=== PATIENT | female | born 1965 | race Caucasian/White ===

== ENCOUNTER 2020-05-06 08:46 | Outpatient (CLI) | payer BC, SELFPAY ==
--- NOTE | 2020-05-06 09:00 | MM_ITS ---
WS: [id number] BILATERAL DIGITAL SCREENING MAMMOGRAM WITH CAD CLINICAL INFORMATION: screening HISTORY: Screening mammogram. No current complaints. COMPARISON: TECHNIQUE: Bilateral CC and MLO. FINDINGS: The breast are composed of extremely dense tissue, which can limit the detection of small underlying mass lesions. No suspicious focal mass, asymmetry, calcifications, or architectural distortion. No ev idence of malignancy. A few punctate calcifications. MM/[place] [id number] IMPRESSION: BI-RADS: 2-Benign FOLLOW UP: 1 Year Follow-up Recommend return to annual screening mammography.
== END 2020-05-06 08:47 | disposition home or self-care (01) ==
LOC: RADSHAW 08:49
PROVIDERS: PCP Family Medicine; Visit Provider Obstetrics & Gynecology
DX: Z12.31 Encounter for screening mammogram for malignant neoplasm of breast (principal)
CPT/HCPCS: 77067

== ENCOUNTER 2021-02-21 09:06 | Outpatient (CLI) | payer BC, SELFPAY ==
--- NOTE | 2021-02-21 09:26 | MR_ITS ---
WS: [id number] MRI HEAD WITH CONTRAST WITH ATTENTION TO THE INTERNAL AUDITORY CANALS TECHNIQUE: Sagittal T1, T2 axial, T2 axial flair, axial susceptibility weighted imaging, axial diffus ion weighted images, and coronal T2 images were obtained. Pre and post T1 axial and post T1 coronal i mages. ADC and FSPGR images. Post gadolinium images with attention to the internal auditory canals. A xial fiesta imaging. CLINICAL INFORMATION: DIPLOPIA, MIGRAINE COMPARISON: None. FINDINGS: No evidence of restricted diffusion to suggest acute ischemia. Ventricular system and basal cisterns are patent. Minimal small vessel changes. Mild parenchymal volume loss. Normal posterior fossa. Lissette l vascular flow voids at the skull base. No extra-axial fluid collections. No evidence of mass or mas s effect. Paranasal sinuses and mastoid air cells are well aerated. Normal visualized posterior nasop harynx. No hemosiderin on the susceptibility weighted images. Proximal 7th and 8th cranial nerves are normal in appearance. Normal trigeminal nerve root entry zones. No evidence of enhancing IAC or CP angle mas s. Normal optic chiasm and pituitary infundibulum. Normal cavernous sinuses and Meckel's cave. Normal sella and pituitary tissue. Normal dural venous sinuses. No abnormal intracranial enhancement. MR/MR iac's wo/w con* [id number] IMPRESSION: 1. No evidence of restricted diffusion to suggest acute ischemia. 2. Minimal small vessel changes with mild parenchymal volume loss. 3. Paranasal sinuses and mastoid air cells are well aerated. 4. Proximal 7th and 8th cranial nerves are normal in appearance. No evidence o f enhancing IAC or CP angle mass. 5. Normal trigeminal nerve root entry zones. 6. Normal optic chiasm and pituitary infundibulum. Normal sella. 7. No other significant findings.
[2021-02-21] MEDS: gadobenate dimeglumine 20 mL vial IV (10:20)
== END 2021-02-21 09:07 | disposition home or self-care (01) ==
PROVIDERS: PCP Family Medicine; Visit Provider Psychiatry & Neurology Neurology
DX: H53.2 Diplopia (principal); G43.909 Migraine, unspecified, not intractable, without status migrainosus
CPT/HCPCS: 70553; A9577

== ENCOUNTER → 2022-05-04 15:20 | Outpatient (BNVA) | payer BC, SELFPAY | PROVIDERS: PCP Family Medicine; Visit Provider Obstetrics & Gynecology | DX: Z01.419 Encounter for gynecological examination (general) (routine) without abnormal findings (principal); Z78.0 Asymptomatic menopausal state; Z12.39 Encounter for other screening for malignant neoplasm of breast | CPT/HCPCS: 87624 ==

== ENCOUNTER 2022-07-29 09:02 | Outpatient (CLI) | payer BC, SELFPAY ==
--- NOTE | 2022-07-29 09:20 | MM_ITS ---
WS: [id number] Bilateral screening 3D tomosynthesis digital mammogram, 07/29/2022 Clinical Data: Z12.39 - Encounter for other screening for malignant neop... Comparison: 05/06/2020, 08/13/2017, 08/09/2017. Findings: The breast parenchymal pattern shows extreme density. No spiculated masses or clustered calcification s are seen. There are no secondary signs of carcinoma. There are lymph nodes in the left axilla. MM/[place] [id number] Impression: 1. Negative bilateral mammogram unchanged. 2. Recommend annual screening mammograms. BIRADS: 1-Negative FOLLOW UP: 1 Year Follow-up The CAD electric organ checker was used.
== END 2022-07-29 09:03 | disposition home or self-care (01) ==
LOC: RAD 09:06
PROVIDERS: PCP Family Medicine; Visit Provider Family Medicine
DX: Z12.31 Encounter for screening mammogram for malignant neoplasm of breast (principal)
CPT/HCPCS: 77063; 77067

== ENCOUNTER → 2022-10-29 09:20 | Outpatient (BNVA) | payer BC, SELFPAY | PROVIDERS: PCP Family Medicine; Visit Provider Family Medicine | DX: Z00.00 Encounter for general adult medical examination without abnormal findings (principal); I10 Essential (primary) hypertension | CPT/HCPCS: 80053; 80061 ==

== ENCOUNTER 2023-03-18 11:45 | Emergency (ER) | payer BC, SELFPAY ==
[2023-03-18 11:54] VITALS: BP 126/85; PULSE 71; RESP 20; O2SAT 100
--- NOTE | 2023-03-18 12:02 | ECG_ITS ---
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 Measurements Intervals [place] Rate: 68 P: -15 HI: 157 QRS: 62 QRSD: 110 T: -1 QT: 414 QTc: 441 Interpretive Statements SINUS RHYTHM LOW QRS VOLTAGE IN PRECORDIAL LEADS [QRS DEFLECTION < 1.0 mV IN CHEST LEADS] INCOMPLETE RIGHT BUNDLE BRANCH BLOCK [90+ ms QRS DURATION, TERMINAL R IN V1/V2, 40+ ms S IN I/aVL/V4/V5/V6] ABNORMAL QRS-T ANGLE [QRS-T AXIS DIFFERENCE > 60] No previous ECG available for comparison Electronically Signed On 03-18-2023 15:15:36 CDT by Jerome Oden M.D. [email or web address] Pharmaceuticalsmymichigan [facility] center.[employer]/store/NU/[id number] f
--- NOTE | 2023-03-18 12:02 | XRR_ITS ---
PROCEDURE INFORMATION: Exam: XR Chest Exam date and time: 03/18/2023 12:20 PM Age: 58 years old Clinical indication: Pain; Angina pectoris; Additional info: Chest pain TECHNIQUE: Imaging protocol: Radiologic exam of the chest. Views: 1 view. COMPARISON: No relevant prior studies available. FINDINGS: Lungs: Unremarkable. No consolidation. Pleural spaces: Unremarkable. No pleural effusion. No pneumothorax. Heart/Mediastinum: Unremarkable. No cardiomegaly. Bones/joints: Unremarkable for age. XR/XR chest 1V portable [id number] IMPRESSION: Negative chest exam.
[2023-03-18 12:24] LABS: Basophils % 0.7 %; Eosinophils % 0.7 %; Hematocrit 41.3 % (36-47); Lymphocytes # 1.5 10^3/uL (0.8-4.8); Lymphocytes % 32.5 %; Mean Corpuscular HGB Conc 35.1 g/dL (30-55); Mean Corpuscular Hemoglobin 32.4 pg (27-33); Mean Corpuscular Volume 92.2 fl (85-98); Monocytes # 0.4 10^3/uL (0.2-0.9); Monocytes % 7.7 %; Neutrophils # 2.66 10^3/uL (1.8-7.7); Neutrophils % 58.2 %; Nucleated Red Blood Cells % 0 %; Platelet Count 249 10^3/cmm (157-399); Red Blood Count 4.48 10^6/uL (3.85-5.65); Red Cell Distribution Width 11.7 % (12.1-15.1); White Blood Count 4.56 10^3/uL (3.29-11.43)
[2023-03-18 12:36] LABS: Troponin(5th) Baseline 6 ng/L (0-10)
[2023-03-18 12:39] LABS: Alanine Aminotransferase 11 U/L (0-33); Albumin Level 4.7 g/dL (3.5-5.2); Alkaline Phosphatase 138 U/L (35-105); Anion Gap 16.5 (5-19); Aspartate Amino Transferase 18 U/L (0-32); Blood Urea Nitrogen 13 mg/dL (8-23); Calcium 9.6 mg/dL (8.5-10.5); Carbon Dioxide 25 mmol/L (22-29); Chloride 101 mmol/L (98-107); Globulin 2.3 g/dL (1.3-4.6); Glomerular Filtration Rate 73.2 mL/min (90-130); Glucose 98 mg/dL (65-115); Osmolality Calculated 286 mOsm/kg (285-295); Potassium 4.5 mmol/L (3.5-5.1); Sodium 138 mmol/L (136-145); Total Bilirubin 0.9 mg/dL (0.15-1.2)
--- NOTE | 2023-03-18 14:02 | ECG_ITS ---
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 Measurements Intervals [place] Rate: 57 P: 66 [place]: 156 QRS: -12 QRSD: 105 T: 47 QT: 443 QTc: 431 Interpretive Statements SINUS BRADYCARDIA LOW QRS VOLTAGE IN PRECORDIAL LEADS [QRS DEFLECTION < 1.0 mV IN CHEST LEADS] SEPTAL MYOCARDIAL INFARCTION , PROBABLY OLD [40+ ms Q WAVE IN V1/V2] No previous ECG available for comparison Electronically Signed On 03-18-2023 15:15:48 CDT by Jerome Oden M.D. [email or web address].[employer]/store/OM/[id number]/[id number]
--- NOTE | 2023-03-18 14:20 | ED_ITS ---
HPI - Chest Pain General: Chief Complaint: Chest Pain Stated Complaint: chest pain Time Seen by Provider: 03/18/23 14:11 Source: patient Mode of arrival: ambulatory History of Present Illness: 58-year-old female who presents emergency room with complaint of episode of chest pain this morning. She was outside working in her garden and about 45 minutes ago had an episode of chest pain. Has not previously had chest pain is completely resolved by now. When she began to get it she describes as like a pressure sensation with no radiation into her neck or arms. She was mildly short of breath she went inside and it persisted so she came to the emergency room at times. Here it is resolved. She does have a history of hypertension no history of hyperlipidemia no family history of early heart disease she is non- smoker nondiabetic MD complaint: chest pain Onset (ago): hour(s) Timing of current episode: episodic Prior episodes: No Onset: during exertion Pain location: left chest Pain radiation: none Severity: moderate Quality: tightness and heaviness Relieving factors: nothing Exacerbating factors: nothing Associated symptoms: Deny abdominal pain, diaphoresis, dyspnea, fever(s), leg e mary, nausea, palpitations, sense of impending doom, syncope or vomiting Treatment prior to arrival: none Review of Systems Const: Denies: fever(s), chills or diaphoresis ENMT: Denies: throat pain, ear or mastoid pain, nasal discharge or nasal congestion Card: Reports: chest pain; Denies: palpitations, irregular heart rhythm, edema or syncope Resp: Denies: dyspnea, productive cough or non-productive cough GI: Denies: abdominal pain, nausea or vomiting : Denies: flank pain, difficulty voiding, dysuria, urinary frequency or urinary urgency Musc: Denies: neck pain or back pain Skin/Breast: Denies: rash or pruritus PFSH ED PFSH: Medical History Chronic hypertension Diagnosed in her early 40s controlled on lisinopril. Managed by PMD. No pertinent past medical history Denies diabetes, seizures, DVT/PE, asthma PCP: Dr. Crystal Vestibular migraine Taking verapamil for this and being managed by neurologist Dr. Kilpatrick in [place]. Surgical History S/P discectomy L5/L6---1997 S/P right knee arthroscopy 2009 Status post surgery Pyloric stenosis correction as an , right upper quadrant horizontal incision Status post surgery Growth removal from right thumb Family History Mother Heart disease Grandfather Heart disease paternal Lung cancer maternal Hypertension paternal Family/Other Breast cancer cousin, diagnosed in early 50s Father Stroke Hypertension Denies family history of Colon cancer Ovarian cancer Hyperlipidemia Uterine cancer Thyroid condition Social History Smoking and tobacco status: never smoked Physical Exam Const: GENERAL APPEARANCE: cooperative and comfortable ORIENTATION/CONSCIOUSNESS: Yes awake, Yes oriented to person, Yes oriented to place and Yes oriented to time HENMT: COMMON NORMALS: normocephalic, atraumatic and hearing grossly normal bilaterally HEAD & SCALP: normocephalic and atraumatic Resp: COMMON NORMALS: normal respiratory effort, No retractions, No use of accessory muscles and clear to auscultation bilaterally AUSCULTATION: clear to auscultation bilaterally Cardio: COMMON NORMALS: regular rate, regular rhythm and No murmurs present (Cardio) RATE: regular rate RHYTHM: regular rhythm GI: COMMON NORMALS: Soft to palpation and No hepatosplenomegaly present AUSCULTATION: Yes normoactive bowel sounds PALPATION: Yes Soft to palpation, No Tenderness to palpation present (GI), No Guarding due to palpation present (GI) and Yes No hepatosplenomegaly present Extremity: COMMON NORMALS: normal to inspection, capillary refill normal, no clubbing, cyanosis or edema, no calf tenderness and no pedal edema Neuro: SENSORIUM/ORIENTATION: Yes oriented to person, Yes oriented to place and Yes oriented to time Skin: COMMON NORMALS: no rashes or lesions noted GENERAL SKIN EXAM: no rashes or lesions noted Course Vital Signs: Vital signs: Vital Signs Pulse Rate 62 03/18/23 15:51 Respiratory Rate 15 03/18/23 15:51 Blood Pressure 106/54 03/18/23 15:51 Pulse Oximetry 97 03/18/23 15:51 Oxygen Delivery Me thod Room Air 03/18/23 15:51 MDM - Chest Pain Medical Decision Making Atypical chest pain resolved EKG does not show any acute ST changes cardiac enzymes negative. We will discharge patient home baby aspirin daily and set up outpatient Lexiscan sestamibi stress test return if has recurrent symptoms. Medical Records I reviewed the patient's medical records. Lab Data I reviewed the patient's lab results. 03/18/23 12:12 03/18/23 12:12 Radiology Impressions Chest X-Ray 03/18/23 12:02 IMPRESSION: Negative chest exam. Laboratory Results WBC 4.56 10^3/uL (3.29-11.43) 03/18/23 12:12 RBC 4.48 10^6/uL (3.85-5.65) 03/18/23 12:12 Hgb 14.50 g/dL (11.27-16.99) 03/18/23 12:12 Hct 41.3 % (36-47) 03/18/23 12:12 MCV 92.2 fl (85-98) 03/18/23 12:12 MCH 32.4 pg (27-33) 03/18/23 12:12 MCHC 35.1 g/dL (30-55) 03/18/23 12:12 RDW 11.7 % (12.1-15.1) L 03/18/23 12:12 Plt Count 249 10^3/cmm (157-399) 03/18/23 12:12 MPV 10.0 fL (7.4-10.4) 03/18/23 12:12 Neut % (Auto) 58.2 % 03/18/23 12:12 Lymph % (Auto) 32.5 % 03/18/23 12:12 Coleman % (Auto) 7.7 % 03/18/23 12:12 Eos % (Auto) 0.7 % 03/18/23 12:12 Baso % (Auto) 0.7 % 03/18/23 12:12 Neut # (Auto) 2.66 10^3/uL (1.8-7.7) 03/18/23 12:12 Lymph # (Auto) 1.5 10^3/uL (0.8-4.8) 03/18/23 12:12 Coleman # (Auto) 0.4 10^3/uL (0.2-0.9) 03/18/23 12:12 Eos # (Auto) 0.0 10^3/uL (0.0-0.8) 03/18/23 12:12 Baso # (Auto) 0.0 10^3/uL (0.0-0.1) 03/18/23 12:12 Nucleated RBC % (auto) 0 % 03/18/23 12:12 Nucleated RBCs # 0.0 /100WBC 03/18/23 12:12 Sodium 138 mmol/L (136-145) 03/18/23 12:12 Potassium 4.5 mmol/L (3.5-5.1) 03/18/23 12:12 Chloride 101 mmol/L (98-107) 03/18/23 12:12 Carbon Dioxide 25 mmol/L (22-29) 03/18/23 12:12 Anion Gap 16.5 (5-19) 03/18/23 12:12 BUN 13 mg/dL (8-23) 03/18/23 12:12 Creatinine 0.8 mg/dL (0.5-0.9) 03/18/23 12:12 GFR Calculation 73.2 mL/min (90-130) L 03/18/23 12:12 Glucose 98 mg/dL (65-115) 03/18/23 12:12 Calculated Osmolality 286 mOsm/kg (285-295) 03/18/23 12:12 Calcium 9.6 mg/dL (8.5-10.5) 03/18/23 12:12 Total Bilirubin 0.9 mg/dL (0.15-1.2) 03/18/23 12:12 AST 18 U/L (0-32) 03/18/23 12:12 ALT 11 U/L (0-33) 03/18/23 12:12 Alkaline Phosphatase 138 U/L (35-105) H 03/18/23 12:12 Troponin T Baseline 6 ng/L (0-10) 03/18/23 12:12 Troponin T 120 Minute 6.00 ng/L (0-10) 03/18/23 14:27 Delta Troponin T 0 ABS# (0-10) 03/18/23 14:27 Total Protein 7.0 g/dL (6.6-8.7) 03/18/23 12:12 Albumin 4.7 g/dL (3.5-5.2) 03/18/23 12:12 Globulin 2.3 g/dL (1.3-4.6) 03/18/23 12:12 Discharge Plan Discharge Patient Disposition: Home Clinical Impression: Atypical chest pain Condition: Stable Prescriptions: New aspirin 81 mg tablet,delayed release (DR/EC) 81 mg PO DAILY Qty: 30 0RF No Action Qulipta 60 mg tablet 60 mg PO DAILY Premarin 0.625 mg/gram cream See Rx Instructions VAGINAL .COMPLEX Qty: 30 2RF Rx Instructions: 1/2 gram q 5 days vaginally clobetasol 0.05 % cream 1 applic topical BID 14 Days Qty: 45 0RF Rx Instructions: use twice daily for two weeks only and then twice a week after that. lisinopril 10 mg tablet 10 mg PO DAILY cholecalciferol (vitamin D3) 50 mcg (2,000 unit) tablet 50 mcg PO DAILY osteobiflex 1 tab PO DAILY multivitamin with iron Tablet 1 tab PO DAILY verapamil 240 mg tablet extended release 240 mg PO DAILY Discharge Orders: Discharge ED (Routine); Ordered 03/18/23 Ordered By: Jamari Mello Referrals: Anuj Crystal MD [Primary Care Provider] - Discharge Diet: Usual diet Discharge Activity: Increase activity as tolerated Patient Instructions: Opioid Safety, Pain Management Activity Restrictions/Additional Instructions: You are seen today for atypical chest pain. Cardiac enzymes and EKG were unremarkable returned case inspector will make arrangements for you to have a stress test. Recommend that you take baby aspirin daily if you have worsening or recurrent symptoms recheck in the emergency room. Coding Level of Care Code ED Hotel Service Manager for Leila Walker
[2023-03-18 15:07] LABS: Troponin 5 2HR Delta 0 ABS# (0-10)
[2023-03-18 15:51] VITALS: BP 106/54; PULSE 62; RESP 15; O2SAT 97
[2023-03-18 16:29] VITALS: BP 106/54; PULSE 62; RESP 15; O2SAT 97
--- NOTE | 2023-03-19 09:56 | DCPLANNER ---
Addendum entered by Bev Matta 03/23/23 14:40: Patient has an outpatient stress test scheduled for Friday, April 07, 2023 at 9:45. Original Note: motel manager had message to schedule an outpatient stress test for patient. motel manager faxed signed order to centralized scheduling, who will call patient with appointment information.
== END 2023-03-18 16:31 | disposition home or self-care (01) ==
PROVIDERS: Emergency Medicine; Emergency Provider Family Medicine; PCP Family Medicine
DX: R07.89 Other chest pain (principal); I10 Essential (primary) hypertension
CPT/HCPCS: 36415; 71045; 80053; 84484; 85025; 93005; 99285

== ENCOUNTER 2023-04-07 09:17 | Outpatient (CLI) | payer BC, SELFPAY ==
--- NOTE | 2023-04-07 | ECG_ITS ---
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 Interpretive Statements NAME OF STUDY: LEXISCAN SESTAMIBI STRESS TEST INDICATION: Atypical Chest Pain PROCEDURE: At the baseline, the blood pressure was 131/86 mmHg with a heart rate of 51 bpm and oxygen saturation 98%. The electrocardiogram showed sinus bradycardia, normal axis with possible old septal infarct. The Lexiscan was infused over a period of 20 seconds. A total of 0.4 milligrams of Lexiscan was infused. The stress phase was continued for a total of 5 minutes. Heart rate at the end of the stress phase was 75 bpm, oxygen saturation 98% with a blood pressure 115/78 mm Hg. The EKG at the peak infusion revealed sinus rhythm with no significant ST-T wave changes. Sestamibi was injected 20 seconds after the Lexiscan infusion. Blood pressure at the end of the recovery phase was 121/79 mmHg, oxygen saturation 98% with a heart rate of 76 beats per minute. CONCLUSION: 1. No significant EKG changes with the LexiScan infusion. 2. No LexiScan induced chest pain or cardiac arrhythmia. 3. Normal blood pressure and heart rate response. 4. Sestamibi/sestamibi perfusion scan pending; see separate report. Electronically Signed On 04-07-2023 16:40:53 CDT by Elisabet Falk M.D. [email or web address],[email or web address] [employer]/store/OM/[id number]/[id number]
[2023-04-07 09:42] VITALS: BMI 19.7
--- NOTE | 2023-04-07 09:43 | NMCV_ITS ---
NM madhuri perf SPECT r/s* [id number] Peyton Loaiza Age: 58 Gender: F : 1965 Exam Date: 04/07/2023 10:25 Ordering Phys: Jamari Mello DO Technologist: MAGALY Walton Exam Location: [facility] Indications: CHEST PAIN STRESS TEST Please see separate stress test report in [facility] for full findings IMAGE PROTOCOL Rest/Stress 1 Lexiscan Day Radiopharmaceutical Dose (mCi) Administration Site Administered by Rest: Tc-99m 10.9 IV MAGALY Ya Sestamibi Stress:Tc-99m 32.3 IV MAGALY Ya Sestamibi Rest: 07-Apr-2023 60 Discovery 630 Stress: 07-Apr-2023 30 Discovery 630 0.4mg Lexiscan. Images obtained in supine and prone position. SPECT RESULTS Technical Quality: Excellent Raw Data Analysis: Normal Image Corrections: No attenuation or motion correction applied Summed Stress Score: 0 Summed Rest Score: 1 Summed Difference Score: 0 PERFUSION FINDINGS SPECT images demonstrate homogeneous tracer distribution throughout the myocardium. FUNCTIONAL RESULTS (calculated via Gated SPECT) Stress Image LV EF (%): 69 Stress EDV (mL):84 TID: 1.06 Stress ESV (mL):26 FUNCTIONAL FINDINGS: The left ventricle is normal in size. Transient Ischemia Dilatation of 1.1. The left ventricular ejection fraction is normal with a value of 69%. There is normal left ventricular wall thickening. Normal end-diastolic and end-systolic volumes. IMPRESSIONS 1. Myocardial perfusion imaging is normal. 2. Overall left ventricular systolic function is normal without regional wall motion abnormalities, LVEF=69%. 3. No EKG changes with Lexiscan infusion. Refer to separate report for details. 4. Scan indicates low risk for cardiac events. Elisabet Falk MD (Electronically Signed) Final Date: 07 April 2023 16:34 S
[2023-04-07] MEDS: regadenoson 0.4 Mg/5 ml Syringe IVP (11:06)
[2023-04-07 11:28] VITALS: BP 120/80; PULSE 72
== END 2023-04-07 09:18 | disposition home or self-care (01) ==
PROVIDERS: PCP Family Medicine; Visit Provider Family Medicine
DX: R07.89 Other chest pain (principal)
CPT/HCPCS: 36415; 78452; 93017; 96374; A9500; J2785

== ENCOUNTER 2023-05-27 06:55 | Day surgery (SDC) | payer BC, SELFPAY ==
--- NOTE | 2023-05-27 06:38 | P.HPUD_ITS ---
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
[2023-05-27 07:12] VITALS: BP 131/91; PULSE 76; RESP 18; TEMP 36.6; O2SAT 100; BMI 19.0
--- NOTE | 2023-05-27 07:19 | ANES.PREANE2 ---
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 A risk Z12.11(Not Applicable) - Leobardo Navarro MD Was Beta Tricia taken within 24 hours: N/A Was Clonidine taken within 24 hours: N/A Last intake: Intake Last Liquid Date 05/26/23 Last Liquid Time 22:00 Last Solid Date 05/25/23 Last Solid Time 18:00 Last Intake: 23:55 Social Alcohol (twice weekly) Exam alert and oriented x 3 Airway Submandibular: within normal limits Cervical ROM: within normal limits Mallampati: Class II Dentition: full History/ROS No significant history except as noted Pulmonary None reported CV/HEM Hypertension None reported Hepatic None reported GI None reported Metabolic None reported Musc/skel None reported Neuropsych Headache (vestibular migraine) Anesthetic Plan ASA status: 2 Anesthesia: MAC Risk of > 500 ml blood loss (7ml/kg in children): No Medications/Allergies Home Medications Medication Instructions Recorded Confirmed Last Taken Type cholecalciferol (vitamin D3) 50 50 mcg PO DAILY 03/18/20 05/27/23 05/26/23 History mcg (2,000 unit) tablet osteobiflex 1 tab PO DAILY 03/18/20 05/27/23 05/26/23 History atogepant 60 mg tablet (Qulipta) 60 mg PO DAILY 05/04/22 05/27/23 05/26/23 History conjugated estrogens 0.625 mg/gram See Rx Instructions vaginal 05/04/22 05/27/23 05/23/23 Rx vaginal cream (Premarin) .COMPLEX #30 grams multivitamin with iron 1 tab PO DAILY 06/04/22 05/27/23 05/26/23 History verapamil 240 mg tablet,extended 240 mg PO DAILY 10/29/22 05/27/23 05/26/23 History release clobetasol 0.05 % topical cream See Rx Instructions .Route .COMPLEX 05/25/23 05/27/23 05/23/23 History lisinopril 10 mg tablet 10 mg PO DAILY 05/25/23 05/27/23 05/26/23 History Allergies Allergy/AdvReac Type Severity Reaction Status Date / Time sudafed AdvReac ADR/ALGY-Pa Uncoded 05/25/23 10:46 lpitations PFSH Anesthesia Medical History Chronic hypertension Diagnosed in her early 40s controlled on lisinopril. Managed by PMD. No pertinent past medical history Denies diabetes, seizures, DVT/PE, asthma PCP: Dr. Crystal Vestibular migraine Taking verapamil for this and being managed by neurologist Dr. Kilpatrick in [place]. Surgical History S/P discectomy L5/L6---1997 S/P right knee arthroscopy 2008 Status post surgery Pyloric stenosis correction as an infant, right upper quadrant horizontal incision Status post surgery Growth removal from right thumb Family History Mother Heart disease Grandfather Heart disease paternal Lung cancer maternal Hypertension paternal Family/Other Breast cancer cousin, diagnosed in early 50s Father Stroke Hypertension Denies family history of Colon cancer Ovarian cancer Hyperlipidemia Uterine cancer Thyroid disease Social History Smoking and tobacco/nicotine status: never used tobacco/nicotine Alcohol intake: current Alcohol intake frequency: few times a week Data Anesthesia Cardiac Studies: Sestamibi Stress Test (Cardiology) 04/07/23
[2023-05-27] MEDS: sodium chloride 0.9% 1,000 ML 30 ML IV (07:20)
[2023-05-27 08:37] VITALS: BP 119/84; PULSE 55; RESP 20; TEMP 36.3; O2SAT 99
[2023-05-27 08:48] VITALS: BP 116/83; PULSE 51; RESP 18; O2SAT 99
--- NOTE | 2023-05-27 08:55 | ANE.PACU2 ---
Inpatient post-anesthesia follow up: Airway intact: Yes Vital signs: Temperature 97.3 F Pulse Rate 51 Respiratory Rate 18 Blood Pressure 116/83 Pulse Oximetry 99 Oxygen Delivery Me thod Room Air Oxygen Flow Rate Fraction of Inspir ed Oxygen Hydration adequate: Yes Nausea and vomiting: No Pain level: 1 Mental status: Baseline
== END 2023-05-27 08:59 | disposition home or self-care (01) ==
PROVIDERS: PCP Family Medicine; Visit Provider Surgery
PROC: 0DJD8ZZ Inspection of Lower Intestinal Tract, Via Natural or Artificial Opening Endoscopic (ICD-10-PCS; CPT 45378; principal; 2023-05-27 07:50)
DX: Z12.11 Encounter for screening for malignant neoplasm of colon (principal); K63.5 Polyp of colon; D12.8 Benign neoplasm of rectum; I10 Essential (primary) hypertension; Z79.82 Long term (current) use of aspirin
CPT/HCPCS: 45380; 88305; J2704; J7030

== ENCOUNTER 2023-08-02 12:37 | Outpatient (CLI) | payer MEDICARE, OTHER, SELFPAY ==
--- NOTE | 2023-08-02 13:03 | MM_ITS ---
WS: [id number] BILATERAL 3D TOMOSYNTHESIS DIGITAL SCREENING MAMMOGRAPHY WITH CAD CLINICAL INFORMATION: Z12.31 - Encounter for screening mammogram for malignant ... HISTORY: Screening mammogram. No current complaints. COMPARISON: 07/29/2022 TECHNIQUE: Bilateral CC and MLO views. FINDINGS: The breasts are composed of heterogeneous fibroglandular density tissue, which can limit the detectio n of small underlying mass lesions. No suspicious mass, asymmetry, calcifications, or architectural d istortion. No evidence of malignancy. IMPRESSION: MM/[place] [id number] BI-RADS: 1-Negative FOLLOW UP: 1 Year Follow-up Recommend return to annual screening mammography.
--- NOTE | 2023-08-02 13:30 | XR_ITS ---
WS: [id number] SCREENING DEXA SCAN [place] CLINICAL INFORMATION: Z78.0 - Asymptomatic menopausal state COMPARISON: None. FINDINGS: The L1-L4 bone mineral density measures 0.852 g/cm2. This corresponds to a T score score of -2.7 and Z score of -1.1. Left femoral neck bone mineral density measures 0.784 g/cm2. This corresponds to a T score of -1.8 an d Z score of -0.6. Right femoral neck bone mineral density measures 0.774 g/cm2. This corresponds to a T score -1.9of an d Z score of -0.6. Mean femoral neck bone mineral density measures 0.779 g/cm2. This corresponds to a T score of -1.8 an d Z score of -0.6. IMPRESSION: Osteoporosis lumbar spine. Osteopenia femoral necks. Patient's FRAX calculated 10 year probability for major osteoporotic fracture is 8.8% and osteoporoti c hip fracture is 1.2%.
== END 2023-08-02 12:38 | disposition home or self-care (01) ==
LOC: RAD 12:38
PROVIDERS: PCP Family Medicine; Visit Provider Nurse Practitioner Women's Health
DX: Z12.31 Encounter for screening mammogram for malignant neoplasm of breast; Z13.820 Encounter for screening for osteoporosis; Z78.0 Asymptomatic menopausal state; M81.6 Localized osteoporosis [Lequesne]; M85.852 Other specified disorders of bone density and structure, left thigh; M85.851 Other specified disorders of bone density and structure, right thigh
CPT/HCPCS: 77063; 77067; 77080

== ENCOUNTER → 2023-10-28 08:54 | Outpatient (BNVA) | payer MEDICARE, OTHER, SELFPAY | PROVIDERS: PCP Family Medicine; Visit Provider Nurse Practitioner Family | DX: D22.62 Melanocytic nevi of left upper limb, including shoulder (principal); L81.4 Other melanin hyperpigmentation; L57.0 Actinic keratosis; L57.8 Other skin changes due to chronic exposure to nonionizing radiation; L90.0 Lichen sclerosus et atrophicus | CPT/HCPCS: 17000; 99213 ==

== ENCOUNTER → 2024-05-24 09:22 | Outpatient (BNVA) | payer MEDICARE, SELFPAY | PROVIDERS: PCP Family Medicine; Visit Provider Nurse Practitioner Family | DX: D22.62 Melanocytic nevi of left upper limb, including shoulder (principal); L81.4 Other melanin hyperpigmentation; L57.8 Other skin changes due to chronic exposure to nonionizing radiation; L30.9 Dermatitis, unspecified | CPT/HCPCS: 11104; 99213 ==

== ENCOUNTER → 2024-06-05 08:54 | Outpatient (BNVA) | payer MEDICARE, SELFPAY | PROVIDERS: PCP Family Medicine; Visit Provider Nurse Practitioner Family | DX: L30.8 Other specified dermatitis (principal); Z48.02 Encounter for removal of sutures; L57.0 Actinic keratosis; D22.62 Melanocytic nevi of left upper limb, including shoulder; L81.4 Other melanin hyperpigmentation; L57.8 Other skin changes due to chronic exposure to nonionizing radiation | CPT/HCPCS: 17000; 99213 ==

== ENCOUNTER → 2024-09-12 09:32 | Outpatient (BNVA) | payer MEDICARE, OTHER, SELFPAY | PROVIDERS: PCP Family Medicine; Visit Provider Family Medicine | DX: I10 Essential (primary) hypertension (principal); M81.0 Age-related osteoporosis without current pathological fracture; Z00.00 Encounter for general adult medical examination without abnormal findings; R53.1 Weakness | CPT/HCPCS: 80053; 80061; 85025 ==

== ENCOUNTER → 2024-10-10 08:04 | Outpatient (BNVA) | payer MEDICARE, OTHER, SELFPAY | PROVIDERS: PCP Family Medicine; Visit Provider Family Medicine | DX: D72.819 Decreased white blood cell count, unspecified (principal) | CPT/HCPCS: 85025 ==

== ENCOUNTER → 2024-11-27 15:17 | Outpatient (BNVA) | payer MEDICARE, OTHER, SELFPAY | PROVIDERS: PCP Family Medicine; Visit Provider Nurse Practitioner Family | DX: S50.911A Unspecified superficial injury of right forearm, initial encounter (principal); S50.912A Unspecified superficial injury of left forearm, initial encounter; D22.62 Melanocytic nevi of left upper limb, including shoulder; L81.4 Other melanin hyperpigmentation; L57.8 Other skin changes due to chronic exposure to nonionizing radiation; L57.0 Actinic keratosis; X58.XXXA Exposure to other specified factors, initial encounter | CPT/HCPCS: 17000; 99213 ==